=== PATIENT | female | born 1980 ===

== ENCOUNTER 2018-03-02 15:34 | Outpatient (CLI) | payer OTHER ==
--- NOTE | 2018-03-02 15:43 | Mammography Report ---
BILATERAL DIGITAL SCREENING MAMMOGRAM with CAD: 03/02/18 10:00:00 CLINICAL: Baseline screening. FINDINGS: The breasts are heterogeneously dense, which may obscure small masses. No mass, architectural distortion or suspicious calcifications. IMPRESSION: No mammographic evidence of malignancy. BI-RADS CATEGORY: 1 - - Negative RECOMMENDATION: Routine mammographic screening in one year. COMMENT: Patient follow-up letters are generated by our [employer] application.
== END 2018-03-02 15:35 | disposition home or self-care (01) ==
LOC: SPVWC 15:34
PROVIDERS: ATTEND Specialist
DX: Z12.31 Encounter for screening mammogram for malignant neoplasm of breast (principal)
CPT/HCPCS: 77067